=== PATIENT | female | born 1950 | race Caucasian/White ===

== ENCOUNTER → 2016-10-12 | Outpatient (CLI) | payer BC ==
[~2016-10-12] MED LIST: APIX1TAB3 PO; ASPEC81 PO; ASPI81TA28 PO; B-COTAB18 PO; CHOL1000 PO; CHOL1CAP13 PO; CLB200 PO; CZR50 PO; DOCU100C PO; HYDR-5688 PO; IPRA1AER2 INH; LEVO100T7 PO; MAGN250T8 PO; METF-384 PO; METO100T44 PO; OXYSR10 PO; PANT40TA2 PO; PRT/20 PO; SNG10 PO; SNK PO; TRAM-10 PO; TRAZ50TA35 PO
[2016-10-12 11:12] LABS: BASO % 0.2 %; BASO ABS # 0.01 K/uL (0-0.2); COMPLETE YES; EOS % 3.7 %; HEMATOCRIT 37.4 % (37-47); LYMPH ABS # 1.13 K/uL (1.2-3.4); MEAN CELL VOLUME 89.7 fL (80-100); MEAN CORPUSCULAR HGB CONC 33.4 g/dl (32-36); MEAN PLATELET VOLUME 9.9 fL (7.4-10.4); MONO % 11.4 %; NEUT % 61.7 %; PLATELET COUNT 242 K/uL (130-400); RED BLOOD COUNT 4.17 M/uL (4.2-5.4); WHITE BLOOD COUNT 4.91 K/uL (4.8-10.8)
[2016-10-12 11:32] LABS: ESTIMATED AVERAGE GLUCOSE 123 mg/dl; HA1C FLAG Normal (Normal)
[2016-10-12 11:52] LABS: ALB/GLOB RATIO 0.8 (0.9-2); ALKALINE PHOSPHATASE 100 U/L (45-117); ALT/SGPT 20 U/L (12-78); AST/SGOT 14 U/L (15-37); BLOOD UREA NITROGEN 17 mg/dl (7-18); BUN/CREATININE RATIO 15.3 (10-20); CARBON DIOXIDE 27 mmol/L (21-32); CHLORIDE 105 mmol/L (98-107); GLUCOSE 90 mg/dl (70-99); POTASSIUM 3.9 mmol/L (3.5-5.1); SODIUM 140 mmol/L (136-145)
== END | disposition home or self-care (01) ==
LOC: C.LAB1850 10:06
PROVIDERS: ATTEND Internal Medicine Geriatric Medicine
DX: I10 Essential (primary) hypertension (principal); R73.9 Hyperglycemia, unspecified; E03.9 Hypothyroidism, unspecified; G47.30 Sleep apnea, unspecified; D64.9 Anemia, unspecified

== ENCOUNTER → 2016-11-10 | Outpatient (CLI) | payer BC ==
[~2016-11-10] MED LIST changes: -METO100T44 PO; +METO1TAB69 PO; -PANT40TA2 PO; +PRT/40 PO; -TRAZ50TA35 PO
--- NOTE | 2016-11-10 12:13 | DIAGNOSTIC IMAGING REPORT ---
RIGHT HIP UNILATERAL 2 VIEWS CLINICAL HISTORY: Right hip pain. COMPARISON: None. DISCUSSION: There are no acute fractures. The joint space appears well-preserved for age. Only minor degenerative changes are evident. No destructive lesions are visualized. IMPRESSION: Minor degenerative change. No evidence of fracture. No destructive lesions are visualized. Electronically signed by: Win Palacios M.D. 11/10/2016 12:11 PM Dictated Date/Time: 11/10/2016 12:11 PM
== END | disposition home or self-care (01) ==
LOC: C.LABBC 11:07
PROVIDERS: ATTEND Internal Medicine Geriatric Medicine
DX: M25.559 Pain in unspecified hip (principal)

== ENCOUNTER → 2016-11-17 | Outpatient (CLI) | payer BC ==
[~2016-11-17] MED LIST changes: +MAGNEVIST IV PRN
--- NOTE | 2016-11-17 15:27 | DIAGNOSTIC IMAGING REPORT ---
MRI OF THE ABDOMEN COMBO CLINICAL HISTORY: Pancreatic cyst. Family history of pancreatic cancer. COMPARISON STUDY: Abdominal CT dated 01/04/2009. TECHNIQUE: MRI of the abdomen is performed transverse T1 and T2-weighted sequences in the axial and coronal planes. Contrast enhanced sequences were acquired following the IV administration of 20 cc of Magnevist. Subtraction imaging was utilized. The examination is modestly degraded by motion artifact. FINDINGS: Lower chest: No pleural effusion is identified. The heart is normal in size. There is a tiny hiatal hernia. Liver: The liver is normal in size, contour, and signal intensity. Minimal central intrahepatic biliary ductal dilatation is seen, likely related to previous cholecystectomy. The hepatic veins and portal veins are patent. Gallbladder: Surgically absent. Spleen: Normal in size and signal intensity. Pancreas: Unremarkable. No pancreatic lesion is identified as clinically queried. Adrenal glands: Unremarkable. Kidneys: The kidneys are normal in size and without hydronephrosis. The kidneys enhance symmetrically. There are numerous parapelvic cysts again noted in the left kidney. There is a retroaortic left renal vein. Abdominal aorta: Normal in course and caliber. Bowel: Visualized portions of the small bowel and colon show no evidence of obstruction. Peritoneum: There is no abdominal ascites. Lymphadenopathy: None. Skeletal structures: Visualized skeletal structures times are normal marrow signal intensity. IMPRESSION: 1. No pancreatic lesion is identified as clinically queried. 2. Status post cholecystectomy. Electronically signed by: Smooth Meza M.D. 11/17/2016 3:25 PM Dictated Date/Time: 11/17/2016 3:16 PM
== END | disposition home or self-care (01) ==
LOC: C.MRIBC 13:38
PROVIDERS: ATTEND Internal Medicine Geriatric Medicine
DX: K86.2 Cyst of pancreas (principal)

== ENCOUNTER → 2017-04-18 | Outpatient (CLI) | payer OTHER ==
[~2017-04-18] MED LIST changes: -MAGNEVIST IV PRN; +TRAZ50TA35 PO
[2017-04-18 12:25] LABS: BASO % 0.2 %; BASO ABS # 0.01 K/uL (0-0.2); COMPLETE YES; EOS % 3.6 %; IG% 0.2 %; LYMPH % 32.3 %; LYMPH ABS # 1.51 K/uL (1.2-3.4); MEAN CELL VOLUME 90.7 fL (80-100); MEAN CORPUSCULAR HEMOGLOBIN 30.1 pg (25-34); MEAN CORPUSCULAR HGB CONC 33.2 g/dl (32-36); MEAN PLATELET VOLUME 10.4 fL (7.4-10.4); MONO % 10.5 %; NEUT % 53.2 %; PLATELET COUNT 265 K/uL (130-400); RED BLOOD COUNT 4.08 M/uL (4.2-5.4); WHITE BLOOD COUNT 4.68 K/uL (4.8-10.8)
[2017-04-18 12:59] LABS: ESTIMATED AVERAGE GLUCOSE 123 mg/dl; HA1C FLAG Normal (Normal)
[2017-04-18 13:06] LABS: ALT/SGPT 20 U/L (12-78); AST/SGOT 15 U/L (15-37); BLOOD UREA NITROGEN 15 mg/dl (7-18); BUN/CREATININE RATIO 13.2 (10-20); CARBON DIOXIDE 27 mmol/L (21-32); CHLORIDE 107 mmol/L (98-107); GLUCOSE 85 mg/dl (70-99); POTASSIUM 4.2 mmol/L (3.5-5.1); SODIUM 140 mmol/L (136-145)
[2017-04-18 13:18] LABS: ALB/GLOB RATIO 0.8 (0.9-2); ALKALINE PHOSPHATASE 101 U/L (45-117); CHOLESTEROL 182 mg/dl (0-200); CHOLESTEROL/HDL RATIO 2.7; HDL CHOLESTEROL 67 mg/dl; LDL CHOLESTEROL CALCULATED 96 mg/dl; TRIGLYCERIDES 93 mg/dl (0-150); VERY LOW DENSITY LIPOPROT CALC 19 mg/dl
== END | disposition home or self-care (01) ==
LOC: C.LABPBG 07:39
PROVIDERS: ATTEND Internal Medicine Geriatric Medicine
DX: I10 Essential (primary) hypertension (principal); R73.9 Hyperglycemia, unspecified; E03.9 Hypothyroidism, unspecified; E06.3 Autoimmune thyroiditis; Z86.2 Personal history of diseases of the blood and blood-forming organs and certain disorders involving the immune mechanism

== ENCOUNTER → 2017-06-05 | Outpatient (CLI) | payer OTHER ==
[2017-06-05 17:49] LABS: BLOOD UREA NITROGEN 17 mg/dl (7-18); BUN/CREATININE RATIO 15.7 (10-20); CALCIUM 9.6 mg/dl (8.5-10.1); CARBON DIOXIDE 29 mmol/L (21-32); CHLORIDE 106 mmol/L (98-107); GLUCOSE 102 mg/dl (70-99); POTASSIUM 4.3 mmol/L (3.5-5.1); SODIUM 139 mmol/L (136-145)
== END | disposition home or self-care (01) ==
LOC: C.LABPBG 10:56
PROVIDERS: ATTEND Internal Medicine Geriatric Medicine
DX: I10 Essential (primary) hypertension (principal)

== ENCOUNTER 2017-06-20 14:37 | Emergency (ER) | payer MEDICARE, OTHER ==
[~2017-06-20] VITALS: Ht 170.2 cm; Wt 113.1 kg
[~2017-06-20 14:37] MED LIST changes: -APIX1TAB3 PO; -ASPI81TA28 PO; -CHOL1CAP13 PO; -CZR50 PO; -IPRA1AER2 INH; -PRT/40 PO; -TRAZ50TA35 PO
[2017-06-20 14:39] VITALS: Ht 170.2 cm; Wt 113.1 kg
[2017-06-20] MEDS ORDERED: SODIUM CHLORIDE 0.9% 1000ML 1,000 ML IV STA (14:51)
[2017-06-20] MEDS ORDERED: ONDANSETRON INJ 2 MG/ML 2 ML VIAL IV STA (14:51)
--- NOTE | 2017-06-20 14:56 | EMERGENCY ROOM VISIT NOTE ---
History Report prepared by Milli: Rafaela Rangel Under the Supervision of: Tracy LopesO. First contact with patient: 14:43 Chief Complaint: IRREGULAR HEARTBEAT Stated Complaint: A-FIB History of Present Illness The patient is a 66 year old female who presents to the Emergency Room with complaints of palpitations. The patient has a history of paroxysmal atrial fibrillation. She currently does not take anticoagulation but does take blood pressure medication and a beta jordi. The patient states that she noticed chest pressure and nausea this morning. She also felt that she was having palpitations. She took her blood pressure at home with her blood pressure cuff and the heartbeat registered as irregular. The patient does have a history of atrial fibrillation and knew that this meant she was in atrial fibrillation. She called her primary care physician and was referred to the emergency department for further evaluation. Currently the patient denies having any leg swelling or shortness of breath. She denies having any noncompliance with medications. The patient has had similar episodes in the past but she thinks her last episode of atrial fibrillation was over 2 years ago. 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 A total of 10 systems reviewed and were otherwise negative. Past Medical & Surgical Medical Problems: (1) Localized, primary osteoarthritis of the lower leg Surgical Problems: (1) Post-operative state Family History No pertinent history stated. Social History Smoking Status: Never Smoker Marital Status: Current/Historical Medications Scheduled Apixaban (Eliquis), 5 MG PO BID Aspirin (Aspirin Ec), 81 MG PO QDD B-Complex Vitamins (Vitamin B Complex), 1 TAB PO QDD Cholecalciferol (D3), 2,000 UNITS PO QDD Docusate Sodium (Stool Softener), 100 MG PO HS Levothyroxine Sodium (Levothyroxine Sodium), 100 MCG PO QAM Losartan Potassium (Losartan Potassium), 50 MG PO QAM Magnesium Oxide (Mg Supplement (Magnesium), 250 MG PO NOON Metformin Hcl (Glucophage), 1,000 MG PO BID Metoprolol Succ (Toprol Xl) (Toprol-Xl ), 100 MG PO QAM Pantoprazole (Pantoprazole Sodium), 40 MG PO QAM Scheduled PRN Ipratropium-Albuterol (Combivent Respimat), 1 PUFFS INH QID PRN for Allergies Coded Allergies: Iodinated Contrast Media (Verified Allergy, Intermediate, IV P DYE-RASH, HEADACHES, RINGING YRS-1080'S, 06/20/17) Adhesives (Verified Allergy, Unknown, BANDAIDS,SOME TAPES-REDNESS, HIVES, 06/20/17) Hydrochlorothiazide (Verified Allergy, Unknown, HEADACHE, 06/20/17) Nickel (Unverified Allergy, Unknown, RASH ON SKIN, 06/20/17) Nylon (Verified Allergy, Unknown, unknown allergy to nylon sutures, ) Shellfish Allergy (Unverified Allergy, Unknown, SEAFOOD-VIOLENT VOMITING, 06/20/17) Fluticasone (Verified Adverse Reaction, Mild, FLONASE-HEADACHE, 06/20/17) Rofecoxib (Verified Adverse Reaction, Mild, NSAIDS-GI UPSET? KIDNEY FUNCTION DECREASED?, 06/20/17) Physical Exam Vital Signs Date Time Temp Pulse Resp B/P (MAP) Pulse Ox O2 Delivery O2 Flow Rate FiO2 06/20/17 18:10 36.6 84 14 137/83 99 06/20/17 17:31 137/83 06/20/17 17:21 84 14 99 06/20/17 17:16 122/88 06/20/17 17:06 78 10 96 06/20/17 17:02 120/80 06/20/17 16:51 95 15 96 06/20/17 16:46 147/81 06/20/17 16:44 102 06/20/17 16:42 95 18 96 Room Air 06/20/17 16:31 128/78 06/20/17 16:27 82 20 98 06/20/17 16:16 126/91 06/20/17 16:01 157/102 06/20/17 15:57 96 12 06/20/17 15:52 94 20 185/125 06/20/17 15:50 88 18 166/132 06/20/17 15:49 166/132 06/20/17 15:47 90 18 06/20/17 15:46 88 06/20/17 15:45 100 9/13/17 15:42 110 17 06/20/17 15:37 85 13 06/20/17 15:32 103 9 06/20/17 15:27 100 18 06/20/17 15:22 127 18 06/20/17 15:17 92 13 06/20/17 15:12 102 6 06/20/17 15:07 113 23 06/20/17 15:02 95 14 06/20/17 14:57 108 18 06/20/17 14:56 101 06/20/17 14:39 36.6 120 20 150/110 96 Physical Exam GENERAL: Patient is awake alert in no acute distress patient is resting comfortably and showing no signs of anxiety EYES: The conjunctivae are clear. The pupils are round and reactive. EARS, NOSE, MOUTH AND THROAT: The nose is without any evidence of any deformity. Mucous membranes are moist tongue is midline NECK: The neck is nontender and supple. RESPIRATORY: Normal respiratory effort is noted there is no evidence of wheezing rhonchi or rales CARDIOVASCULAR: Regular rhythm was noted to auscultation. Tachycardic rate was noted. No definite murmur was noted auscultation. GASTROINTESTINAL: The abdomen is soft. Bowel sounds are present in all quadrants. Abdomen is nontender MUSCULOSKELETAL/EXTREMITIES: There is no evidence of gross deformity full range of motion is noted in the hips and shoulders SKIN: There is no obvious evidence of any rash. Trace pedal edema was noted bilaterally. NEUROLOGIC: Patient is awake alert and oriented x3. Medical Decision & Procedures ER Provider Diagnostic Interpretation: Radiology results as stated below per my review and radiologist interpretation: CHEST ONE VIEW PORTABLE CLINICAL HISTORY: Palpitations. COMPARISON STUDY: Chest radiograph September 01, 2015. FINDINGS: Lung volumes are normal. There is no pneumothorax or pleural effusion. There is no evidence of pulmonary edema. Mild cardiomegaly is noted. No consolidation is identified. IMPRESSION: 1. No acute cardiopulmonary findings. 2. Mild cardiomegaly. Electronically signed by: Joshua Crockett M.D. 06/20/2017 3:53 PM Dictated Date/Time: 06/20/2017 3:52 PM Laboratory Results 06/20/17 15:00 Red Blood Count 4.43, Mean Corpuscular Volume 89.8, Mean Corpuscular Hemoglobin 29.3, Mean Corpuscular Hemoglobin Concent 32.7, Mean Platelet Volume 9.7, Neutrophils (%) (Auto) 60.2, Lymphocytes (%) (Auto) 29.2, Monocytes (%) (Auto) 8.8, Eosinophils (%) (Auto) 1.2, Basophils (%) (Auto) 0.2, Neutrophils # (Auto) 3.07, Lymphocytes # (Auto) 1.49, Monocytes # (Auto) 0.45, Eosinophils # (Auto) 0.06, Basophils # (Auto) 0.01 06/20/17 15:00 Test 06/20/17 15:00 White Blood Count 5.10 K/uL (4.8-10.8) Red Blood Count 4.43 M/uL (4.2-5.4) Hemoglobin 13.0 g/dL (12.0-16.0) Hematocrit 39.8 % (37-47) Mean Corpuscular Volume 89.8 fL (80-100) Mean Corpuscular Hemoglobin 29.3 pg (25-34) Mean Corpuscular Hemoglobin Concent 32.7 g/dl (32-36) Platelet Count 279 K/uL (130-400) Mean Platelet Volume 9.7 fL (7.4-10.4) Neutrophils (%) (Auto) 60.2 % Lymphocytes (%) (Auto) 29.2 % Monocytes (%) (Auto) 8.8 % Eosinophils (%) (Auto) 1.2 % Basophils (%) (Auto) 0.2 % Neutrophils # (Auto) 3.07 K/uL (1.4-6.5) Lymphocytes # (Auto) 1.49 K/uL (1.2-3.4) Monocytes # (Auto) 0.45 K/uL (0.11-0.59) Eosinophils # (Auto) 0.06 K/uL (0-0.5) Basophils # (Auto) 0.01 K/uL (0-0.2) RDW Standard Deviation 48.1 fL (36.4-46.3) RDW Coefficient of Variation 14.6 % (11.5-14.5) Immature Granulocyte % (Auto) 0.4 % Immature Granulocyte # (Auto) 0.02 K/uL (0.00-0.02) Prothrombin Time 10.3 SECONDS (9.0-12.0) Prothromb Time International Ratio 1.0 (0.9-1.1) Activated Partial Thromboplast Time 28.4 SECONDS (21.0-31.0) Partial Thromboplastin Ratio 1.1 Anion Gap 6.0 mmol/L (3-11) Est Creatinine Clear Calc Drug Dose 60.7 ml/min Estimated GFR () 54.9 Estimated GFR (Non- 47.4 BUN/Creatinine Ratio 15.6 (10-20) Calcium Level 9.4 mg/dl (8.5-10.1) Magnesium Level 2.2 mg/dl (1.8-2.4) Total Bilirubin 0.4 mg/dl (0.2-1) Direct Bilirubin < 0.1 mg/dl (0-0.2) Aspartate Amino Transf (AST/SGOT) 18 U/L (15-37) Alanine Aminotransferase (ALT/SGPT) 21 U/L (12-78) Alkaline Phosphatase 117 U/L (45-117) Total Creatine Kinase 155 U/L (26-192) Creatine Kinase MB 2.7 ng/ml (0.5-3.6) Creatine Kinase MB Ratio 1.7 (0-3.0) Troponin I < 0.015 ng/ml (0-0.045) Total Protein 8.1 gm/dl (6.4-8.2) Albumin 3.7 gm/dl (3.4-5.0) Lipase 162 U/L (73-393) Thyroid Stimulating Hormone (TSH) 0.997 uIu/ml (0.300-4.500) Free Thyroxine 1.34 ng/dl (0.80-1.60) Laboratory results per my review. Medications Administered Medications (Trade) Dose Ordered Sig/Clarice Route Start Time Stop Time Status Last Admin Dose Admin Sodium Chloride 1,000 ml @ 999 mls/hr Q1H1M STAT IV 06/20/17 14:51 06/20/17 15:51 DC 06/20/17 15:45 999 MLS/HR Ondansetron HCl (Zofran Inj) 4 mg NOW STAT IV 06/20/17 14:51 06/20/17 14:53 DC 06/20/17 15:46 4 MG Metoprolol Tartrate (Lopressor Iv) 15 mg NOW STAT IV 06/20/17 14:58 06/20/17 14:59 DC 06/20/17 15:46 15 MG Apixaban (Eliquis Tab) 5 mg ONE STAT PO 06/20/17 17:04 06/20/17 17:06 DC 06/20/17 18:04 5 MG ECG Indication: palpitations Rate (beats per minute): 112 Rhythm: atrial fibrillation Findings: ST depression (Lateral) Comparison ECG Date: changes are new compared to 09/01/2015 ED Course 1443: The patient was evaluated in room A11B. A complete history and physical examination were performed. 1451: Zofran 4 mg IV, NSS 1000 ml @ 999 mls/hr IV 1458: Lopressor 15 mg IV 1611: I discussed the patient's case with Dr. Rose of cardiology. The patient will follow-up with her PCP tomorrow and will be seen in Dr. Rose's office next week. He recommended starting the patient on a blood thinner. 1704: Eliquis Tab 5 mg PO 1729: I reassessed the patient at this time. She is feeling better and resting comfortably. I discussed the results and treatment plan with the patient. I answered all pertaining questions that she had. Sh expressed understanding and verbalized agreement. The patient will be discharged home and will follow-up with her PCP tomorrow. Medical Decision Prior records/ancillary studies reviewed. Triage Nursing notes reviewed. Differential diagnosis: Etiologies such as premature contractions, electrolyte abnormality, cardiac dysrhythmia, thyroid dysfunction, pulmonary embolism, infection, gastrointestinal, as well as others were entertained. The patient is a 66-year-old female who presented to emergency department for an evaluation of palpitations and irregular heartbeat. The patient has a history of atrial fibrillation and felt that her condition this morning was consistent with atrial fibrillation. The patient states her symptoms began acutely today. She has a history of atrial fibrillation but currently does not take anticoagulation because the paroxysmal nature of her atrial fibrillation. I discussed the patient's laboratory and radiographic studies with her. She was treated with IV fluids and IV Lopressor. She was also started on blood thinners. I [facility] They 've agreed to evaluate the patient in the emergency department for further management and disposition. The patient was encouraged to continue all medications as prescribed and rest. She was also encouraged to drink plenty clear liquids and return the emergency apartment immediately if symptoms change worsen or the need arises. I think at this time the patient's Ajit vascular score is indicative that she may require anticoagulation. The patient is agreeable to this therapy at this time. Medication Reconcilliation Current Medication List: was personally reviewed by me Blood Pressure Screening Patient's blood pressure: Elevated blood pressure Blood pressure disposition: Referred to PCP Consults Time Called: 1607 Consulting Physician: Dr. Rose Returned Call: 1611 I discussed the patient's case with Dr. Rose of cardiology. The patient will follow-up with her PCP tomorrow and will be seen in Dr. Rose's office next week. He recommended starting the patient on a blood thinner. Impression Primary Impression: Atrial fibrillation with RVR Additional Impressions: Hypertension Precordial chest pain Scribe Attestation The scribe's documentation has been prepared under my direction and personally reviewed by me in its entirety. I confirm that the note above accurately reflects all work, treatment, procedures, and medical decision making performed by me. Departure Information Dispostion Home / Self-Care Prescriptions Apixaban (ELIQUIS) 5 Mg Tab 5 MG PO BID, #60 TAB Prov: Francesco Arreola, DO 06/20/17 Referrals Joshua Jones M.D. (PCP) Diomedes Rose MD Forms HOME CARE DOCUMENTATION FORM, IMPORTANT VISIT INFORMATION Patient Instructions Atrial Fibrillation, My [facility] Additional Instructions Stop taking the baby aspirin. Start taking the new medication which is a blood thinner twice a day. Continue all other medications as prescribed. Rest and avoid any strenuous ectopy. Follow-up with your doctor tomorrow as scheduled. Return to the emergency department immediately if symptoms change worsen or the need arises. Problem Qualifiers Additional Impressions: Hypertension Hypertension type: unspecified Qualified Codes: I10 - Essential (primary) hypertension
[2017-06-20] MEDS ORDERED: METOPROLOL TARTRATE 1 MG/ML VIAL IV STA (14:58)
[2017-06-20] MEDS ORDERED: CZR50 PO (15:09)
[2017-06-20] MEDS ORDERED: IPRA1AER2 INH (15:09)
[2017-06-20] MEDS ORDERED: PRT/40 PO (15:09)
[2017-06-20] MEDS ORDERED: ASPI81TA28 PO (15:09)
[2017-06-20] MEDS ORDERED: CHOL1CAP13 PO (15:09)
[2017-06-20 15:26] LABS: PARTIAL THROMBOPLASTIN RATIO 1.1; PROTHROMBIN TIME (PATIENT) 10.3 SECONDS (9.0-12.0)
[2017-06-20 15:30] LABS: BASO % 0.2 %; BASO ABS # 0.01 K/uL (0-0.2); COMPLETE YES; EOS % 1.2 %; HEMATOCRIT 39.8 % (37-47); IG% 0.4 %; LYMPH % 29.2 %; LYMPH ABS # 1.49 K/uL (1.2-3.4); MEAN CELL VOLUME 89.8 fL (80-100); MEAN CORPUSCULAR HEMOGLOBIN 29.3 pg (25-34); MEAN CORPUSCULAR HGB CONC 32.7 g/dl (32-36); MEAN PLATELET VOLUME 9.7 fL (7.4-10.4); MONO % 8.8 %; NEUT % 60.2 %; PLATELET COUNT 279 K/uL (130-400); RED BLOOD COUNT 4.43 M/uL (4.2-5.4)
[2017-06-20 15:47] LABS: ALT/SGPT 21 U/L (12-78); AST/SGOT 18 U/L (15-37); BLOOD UREA NITROGEN 19 mg/dl (7-18); BUN/CREATININE RATIO 15.6 (10-20); CALCIUM 9.4 mg/dl (8.5-10.1); CARBON DIOXIDE 26 mmol/L (21-32); CHLORIDE 106 mmol/L (98-107); GLUCOSE 102 mg/dl (70-99); MAGNESIUM 2.2 mg/dl (1.8-2.4); POTASSIUM 4.3 mmol/L (3.5-5.1); SODIUM 138 mmol/L (136-145)
--- NOTE | 2017-06-20 15:54 | DIAGNOSTIC IMAGING REPORT ---
CHEST ONE VIEW PORTABLE CLINICAL HISTORY: Palpitations. COMPARISON STUDY: Chest radiograph September 01, 2015. FINDINGS: Lung volumes are normal. There is no pneumothorax or pleural effusion. There is no evidence of pulmonary edema. Mild cardiomegaly is noted. No consolidation is identified. IMPRESSION: 1. No acute cardiopulmonary findings. 2. Mild cardiomegaly. Electronically signed by: Joshua Crockett M.D. 06/20/2017 3:53 PM Dictated Date/Time: 06/20/2017 3:52 PM
[2017-06-20 15:55] LABS: ALKALINE PHOSPHATASE 117 U/L (45-117); CKMB/CK RATIO 1.7 (0-3.0); THYROID STIMULATING HORMONE 0.997 uIu/ml (0.300-4.500)
[2017-06-20] MEDS ORDERED: APIXABAN 2.5 MG TAB PO STA (17:04)
[2017-06-20] MEDS ORDERED: APIX1TAB3 PO (17:06)
[2017-06-20 18:10] VITALS: BP 137/83; PULSE 84; TEMP 36.6; O2SAT 99
[2017-07-17] MEDS ORDERED: TRAZ50TA35 PO (06:47)
== END 2017-06-20 18:11 | disposition home or self-care (01) ==
LOC: C.EDB 14:39 → C.EDA 18:11
DX: I48.0 Paroxysmal atrial fibrillation (principal); I10 Essential (primary) hypertension; M17.10 Unilateral primary osteoarthritis, unspecified knee; Z79.01 Long term (current) use of anticoagulants; Z79.82 Long term (current) use of aspirin; Z79.899 Other long term (current) drug therapy

== ENCOUNTER → 2017-07-13 | Outpatient (CLI) | payer MEDICARE ==
[~2017-07-13] MED LIST changes: +APIX1TAB3 PO; -ASPEC81 PO; +ASPI81TA28 PO; -CHOL1000 PO; +CHOL1CAP13 PO; -CLB200 PO; +CZR50 PO; -HYDR-5688 PO; +IPRA1AER2 INH; -OXYSR10 PO; -PRT/20 PO; +PRT/40 PO; -SNG10 PO; -SNK PO; -TRAM-10 PO; +TRAZ50TA35 PO
[2017-07-13 15:30] LABS: HEMATOCRIT 33.9 % (37-47); MEAN CELL VOLUME 89.9 fL (80-100); MEAN CORPUSCULAR HEMOGLOBIN 30.5 pg (25-34); MEAN CORPUSCULAR HGB CONC 33.9 g/dl (32-36); MEAN PLATELET VOLUME 10.1 fL (7.4-10.4); PLATELET COUNT 233 K/uL (130-400); RED BLOOD COUNT 3.77 M/uL (4.2-5.4); WHITE BLOOD COUNT 4.44 K/uL (4.8-10.8)
== END | disposition home or self-care (01) ==
LOC: C.LAB1850 13:56
PROVIDERS: ATTEND Physician Assistant
DX: I48.91 Unspecified atrial fibrillation (principal)

== ENCOUNTER → 2017-07-17 | Day surgery (SDC) | payer MEDICARE ==
[~2017-07-17] VITALS: Ht 170.2 cm; Wt 112.0 kg
[~2017-07-17] MED LIST changes: +PROPOFOL IV EMULSION 10 MG/ML 20 ML VIAL IV ONE
[2017-07-17 06:59] VITALS: BP 148/80; PULSE 84; TEMP 36.6; O2SAT 95; Ht 170.2 cm; Wt 112.0 kg
[2017-07-17 07:50] VITALS: BP 118/84; PULSE 96; O2SAT 100
--- NOTE | 2017-07-17 07:54 | History & Physical Bridge Note ---
H&P Re-Evaluation Bridge Note: I have examined the patient, reviewed the History & Physical and in the interval since the performance of the History & Physical I have noted the following changes of clinical significance: No changes noted. I reviewed the indications, procedure, risks and alternatives of cardioversion with her and she understands and agrees to proceed. She confirms that she has been taking her anticoagulant record. Consent obtained.
[2017-07-17 07:55] VITALS: BP 134/80; PULSE 85; O2SAT 100
[2017-07-17 08:00] VITALS: BP 140/79; PULSE 93; O2SAT 100
[2017-07-17 08:05] VITALS: BP 112/52; PULSE 57; O2SAT 98
--- NOTE | 2017-07-17 08:05 | [facility] Operative Report ---
Operative Report Operative Date Jul 17, 2017. Pre-Operative Diagnosis Atrial fibrillation Post-Operative Diagnosis same Procedure(s) Performed Electrical cardioversion Surgeon Dr. Medina Second Cutter Surgeon(s) none Estimated Blood Loss none Findings Successful cardioversion Specimens None Anesthesia Via anesthesia department Complication(s) None Disposition [employer] Worker recovery Description of Procedure The patient was brought to the laboratory being NPO after midnight. He was identified in the laboratory, connected to the recording apparatus including electrocardiographic monitoring, noninvasive blood pressure monitoring and pulse oximetry. Anteroposterior patch electrodes were placed. She was anesthetized by the anesthesia department. Once adequate anesthesia was obtained a synchronized biphasic shock was delivered using 200 J. She converted to a sinus rhythm. She awoke from the anesthetic without sequela. She will be observed briefly and then discharged. I attest to the content of the Intraoperative Record and any orders documented therein. Any exceptions are noted below.
--- NOTE | 2017-07-17 08:28 | Anesthesiology Progress Note ---
Anesthesia Post Op Note Date & Time Jul 17, 2017 at 08:28 Vital Signs Pain Intensity: 0 Vital Signs Past 12 Hours Date Time Temp Pulse Resp B/P (MAP) Pulse Ox O2 Delivery O2 Flow Rate FiO2 07/17/17 08:19 56 16 110/52 (71) 98 Room Air 07/17/17 08:09 56 16 99/47 (64) 98 Room Air 07/17/17 08:05 57 16 112/52 98 Room Air 07/17/17 08:00 93 16 140/79 100 Nasal Cannula 5 07/17/17 07:55 85 16 134/80 100 Nasal Cannula 5 07/17/17 07:50 96 16 118/84 100 Nasal Cannula 5 07/17/17 06:59 36.6 84 18 148/80 95 Room Air Notes Mental Status: alert / awake / arousable, participated in evaluation Pt Amnestic to Procedure: Yes Nausea / Vomiting: adequately controlled Pain: adequately controlled Airway Patency, RR, SpO2: stable & adequate BP & HR: stable & adequate Hydration State: stable & adequate Anesthetic Complications: no major complications apparent
--- NOTE | 2017-07-17 08:54 | Discharge Instructions ---
Discharge Instructions Date of Service Jul 17, 2017. Admission Reason for Admission: Atrial fibrillation Discharge Discharge Diagnosis / Problem: electrical cardioversion Discharge Goals Goal(s): Improve disease control Activity Recommendations Activity Limitations: resume your previous activity . Instructions / Follow-Up Instructions / Follow-Up ACTIVITY RECOMMENDATIONS: * May resume driving tomorrow. SPECIAL CARE: * May apply burn ointment for skin irritation. * Please contact physician for any lightheadedness, dizziness or palpitations. Current Hospital Diet Patient's current hospital diet: AHA Diet (Heart Healthy) Discharge Diet Recommended Diet: AHA Diet (Heart Healthy) Pending Studies Studies pending at discharge: no Laboratory Results Hemoglobin A1c Test 04/18/17 07:41 Range/Units Estimated Average Glucose 123 mg/dl Hemoglobin A1c 5.9 H 4.5-5.6 % Lipid Panel Test 04/18/17 07:41 Range/Units Triglycerides Level 93 0-150 mg/dl Cholesterol Level 182 0-200 mg/dl HDL Cholesterol 67 mg/dl Cholesterol/HDL Ratio 2.7 LDL Cholesterol, Calculated 96 mg/dl Medical Emergencies . Who to Call and When: Medical Emergencies: If at any time you feel your situation is an emergency, please call 911 immediately. . Non-Emergent Contact Non-Emergency issues call your: Primary Care Provider . . "Provider Documentation" section prepared by Paulino Meidna. . VTE Core Measure Inpt VTE Proph given/why not?: Other Anticoagulation
[2017-07-17 09:00] VITALS: BP 96/52; PULSE 55; O2SAT 98
== END | disposition home or self-care (01) ==
LOC: C.CATH 06:45
PROVIDERS: ATTEND Internal Medicine Cardiovascular Disease
DX: I48.91 Unspecified atrial fibrillation (principal); I10 Essential (primary) hypertension; R42 Dizziness and giddiness; K92.1 Melena; E88.81 Metabolic syndrome and other insulin resistance; G47.33 Obstructive sleep apnea (adult) (pediatric); E66.9 Obesity, unspecified; Z68.38 Body mass index [BMI] 38.0-38.9, adult; Z98.890 Other specified postprocedural states; Z90.49 Acquired absence of other specified parts of digestive tract; Z90.710 Acquired absence of both cervix and uterus; Z96.659 Presence of unspecified artificial knee joint; Z82.49 Family history of ischemic heart disease and other diseases of the circulatory system; Z80.1 Family history of malignant neoplasm of trachea, bronchus and lung; Z80.0 Family history of malignant neoplasm of digestive organs

== ENCOUNTER → 2018-01-31 | Outpatient (CLI) | payer MEDICARE ==
[~2018-01-31] MED LIST changes: -APIX1TAB3 PO; -ASPI81TA28 PO; -IPRA1AER2 INH; +METO100T44 PO; -METO1TAB69 PO; +PANT40TA2 PO; -PROPOFOL IV EMULSION 10 MG/ML 20 ML VIAL IV ONE; -PRT/40 PO; -TRAZ50TA35 PO
--- NOTE | 2018-02-04 07:50 | MAMMOGRAPHY REPORT ---
BILATERAL DIGITAL SCREENING MAMMOGRAM TOMOSYNTHESIS WITH CAD: 01/31/2018 CLINICAL HISTORY: Routine screening. TECHNIQUE: Breast tomosynthesis in addition to standard 2D mammography was performed. Current study was also evaluated with a Computer Aided Detection (CAD) system. COMPARISON: Comparison is made to exams dated: 06/19/2016 mammogram, 06/15/2015 mammogram, 06/12/2014 radha mogram, 06/11/2013 mammogram, 05/30/2012 mammogram, and 05/30/2011 mammogram - [facility] er. BREAST COMPOSITION: There are scattered areas of fibroglandular density in both breasts. FINDINGS: No suspicious masses, calcifications, or areas of architectural distortion are noted in ei ther breast. There has been no significant interval change compared to prior exams. The patient is s tatus post bilateral reduction mammoplasty. An oval fat density mass with associated coarse calcifica tions in the right central breast is again noted and consistent with fat necrosis. Other scattered b ilateral benign-appearing calcifications are not significantly changed. IMPRESSION: ACR BI-RADS CATEGORY 2: BENIGN There is no mammographic evidence of malignancy. A 1 year screening mammogram is recommended. The pa tient will receive written notification of the results. Approximately 10% of breast cancers are not detected with mammography. A negative mammographic report should not delay biopsy if a clinically suggestive mass is present. Julia Langley M.D. ah/:01/31/2018 14:59:32 [employer] Machine Operator: Espinoza TIJERINA)(Concha), [facility] letter sent: Normal 1/2 BI-RADS Code: ACR BI-RADS Category 2: Benign
== END | disposition home or self-care (01) ==
LOC: C.MAMM 14:16
PROVIDERS: ATTEND Internal Medicine Geriatric Medicine
DX: Z12.31 Encounter for screening mammogram for malignant neoplasm of breast (principal)

== ENCOUNTER → 2018-05-24 | Outpatient (CLI) | payer MEDICARE ==
[2018-05-24 17:20] LABS: BLOOD UREA NITROGEN 18 mg/dl (7-18); CALCIUM 9.5 mg/dl (8.5-10.1); CARBON DIOXIDE 30 mmol/L (21-32); CREATININE 1.23 mg/dl (0.60-1.20); GLUCOSE 120 mg/dl (70-99); POTASSIUM 4.5 mmol/L (3.5-5.1); SODIUM 138 mmol/L (136-145)
== END | disposition home or self-care (01) ==
LOC: C.LABPBG 15:51
PROVIDERS: ATTEND Internal Medicine Geriatric Medicine
DX: N18.9 Chronic kidney disease, unspecified (principal); Z11.59 Encounter for screening for other viral diseases